=== PATIENT | male | born 1985 | race Caucasian/White ===

== ENCOUNTER 2017-03-15 16:31 | Emergency (ER) | payer MEDICAID, SELFPAY ==
[2017-03-15 19:02] VITALS: BMI 30.7
[2017-03-15 19:04] VITALS: BP 127/78; PULSE 93; RESP 18; TEMP 36.7; O2SAT 94; BMI 30.7
--- NOTE | 2017-03-15 19:09 | XR_ITS ---
XR chest 2V HISTORY: ITS.REASON: COUGH ORDERING PHYSICIAN: Starr Pearson MD PATIENT AGE: 31 years COMPARISON: None available FINDINGS: The cardiomediastinal silhouette and pulmonary vascularity are within normal limits. There is hyper inflation with coarsening of the bronchovascular markings consistent with asthma/bronchitis. No lobar consolidation or collapse. On the lateral view there is a 9 mm nodular opacity projecting over the T10 vertebral body possibly related to summation artifact and may be confirmed with follow-up.. No acute bony abnormalities. IMPRESSION: 1. Hyperinflation with coarsening of the bronchovascular markings suggesting bronchitis/asthma 2. Possible nodular density overlying the T10 vertebral body. Follow-up suggested to confirm stability and/or resolution
--- NOTE | 2017-03-15 20:12 | HMH.EDGENADL ---
ED Disposition Clinical Impression: Acute bronchitis, Serous otitis media, Furuncle Disposition: Home, Self-Care Condition on Discharge: Good Instructions: DI for Acute Bronchitis, DI for Sinusitis, Middle Ear Infection Additional Instructions: Additional instructions for UPPER RESPIRATORY INFECTION: See your physician as soon as possible for further evaluation. Return immediately if you have an uncontrollable fever greater than 104 degrees, difficulty breathing or shortness of breath, persistent vomiting, or inability to swallow. Prescriptions: Azithromycin [Zithromax 250mg tab] 250 mg PO DAILY #4 tablet Benzonatate [Tessalon Perle 100mg Cap] 100 mg PO TIDP PRN #20 cap PRN Reason: Cough Mupirocin [Bactroban 2% Ointment 22gm tube] 1 applicatio TP TID #1 tube - Critical Care Critical Care Time: No Attestation: On 03/15/17, the high probability of a clinically significant, sudden or life threatening deterioration of the following system(s) required my full and direct attention, intervention and personal management. The time I documented below is in addition to time spent performing reported procedures but includes the following listed in this critical care notation. Medical Decision Making Vital Signs: 03/15/17 19:04 Temperature 98.1 F Temperature Source Oral Pulse Rate [Right Brachial] 93 H Respiratory Rate 18 Blood Pressure [Right Arm] 127/78 Blood Pressure Mean [Right Arm] 94 Blood Pressure Source [Right Arm] Automatic Cuff Blood Pressure Position [Right Arm] Sitting 02 Sat by Pulse Oximetry 94 L Oxygen Delivery Method Room Air - Lab Data Lab Results 03/15/17 19:05: Influenza Type A Ag Negative, Influenza Type B Ag Negative Orders (Tests/Meds): ORDERS Category Date Time Status Chest XR 2 view (NOT portable) [XR chest 2V] Stat Exams 03/15/17 19:09 Taken - Jeevan Inquiry Pt receiving controlled substance: No General Adult HPI - General Chief complaint: Fever Stated complaint: Congestion,Facial Pressure, Back Pain Mode of Arrival: Ambulatory Limitations: No Limitations Description of Symptoms (Recalled from ER Triage Doc. by RN): COUGH,FEVER - History of Present Illness HPI narrative: The patient has 2 different complaints. He has an upper respiratory infection since before which is not improving. He also has a small skin lesion on his left buttock for a week. He has not seen his primary care physician. He complains of nasal and sinus congestion, colored rhinorrhea, sore throat, congested ears, cough. - Related Data Previous Rx's Medication Instructions Recorded Azithromycin [Zithromax 250mg 250 mg PO DAILY #4 tablet 03/15/17 tab] Benzonatate [Tessalon Perle 100mg 100 mg PO TIDP PRN #20 cap 03/15/17 Cap] Mupirocin [Bactroban 2% Ointment 1 applicatio TP TID #1 tube 03/15/17 22gm tube] Allergies Allergy/AdvReac Type Severity Reaction Status Date / Time No Known Allergies Allergy Unverified 02/26/17 15:00 [facility] History I have reviewed the patient's past medical history: Yes - *Social History Educational Level: Completed High School Smoking Status: Current every day smoker Tobacco Type: cigarettes # Packs/Day (cigarettes): 20 Alcohol Intake: current Alcohol Intake Frequency:: holidays/special occasions only - Psychiatric History Expresses thoughts of harming self/others: None Suicide Plan Description: No Plan ROS Obtained: Yes Appropriate systems reviewed & no add complaints except as noted - Constitutional Reports fever(s) - ENT Reports ear pain, Reports nasal congestion, Reports nasal discharge, Reports sinus pain, Reports sinus pressure, Reports sore throat - Respiratory Reports cough - Integumentary/Breasts Reports new lesions Physical Exam - General General appearance: alert, in no apparent distress - Head Head exam: atraumatic, normocephalic, normal inspection - Eye Eye exam: Present: norm
== END 2017-03-15 21:09 | disposition home or self-care (01) ==
PROVIDERS: Emergency Medicine; Emergency Provider Emergency Medicine; Family Provider Family Medicine
DX: J20.9 Acute bronchitis, unspecified (principal); H65.90 Unspecified nonsuppurative otitis media, unspecified ear; L02.32 Furuncle of buttock; F17.210 Nicotine dependence, cigarettes, uncomplicated
CPT/HCPCS: 71046; 87275; 87276; 99283

== ENCOUNTER 2019-09-21 09:02 | Emergency (ER) | payer OTHER, SELFPAY ==
[2019-09-21 09:04] VITALS: BP 141/84; PULSE 87; RESP 16; TEMP 36.7; O2SAT 95; BMI 34.9
--- NOTE | 2019-09-21 09:16 | XR_ITS ---
PROCEDURE: XR CHEST 2V CLINICAL HISTORY: chest pain COMPARISON: No exams were available for comparison FINDINGS: The cardiomediastinal silhouette and pulmonary vascularity are within normal limits. The lungs are clear without infiltrates, suspicious nodules, or pleural effusions. No acute bony findings. IMPRESSION: No acute findings. Dictated by: Shemar Contreras MD 09/21/2019 09:55 Electronically signed by Shemar Contreras MD in [place] 09/21/2019 09:55
--- NOTE | 2019-09-21 09:23 | PC.NURSE ---
Pt to rad
--- NOTE | 2019-09-21 09:27 | HMH.EDGENADL ---
ED Disposition Clinical Impression: Chest pain Qualifiers: Chest pain type: unspecified Qualified Code(s): R07.9 - Chest pain, unspecified Nausea and vomiting Qualifiers: Vomiting type: unspecified Vomiting Intractability: non-intractable Qualified Code(s): R11.2 - Nausea with vomiting, unspecified Disposition: Home, Self-Care Condition on Discharge: Good Instructions: DI for Diarrhea and Traveler's Diarrhea -- Adult, DI for Diarrhea and Traveler's Diarrhea -- Child, DI for Nausea -- Adult, DI for Nausea -- Child Additional Instructions: Zofran as needed for nausea. Stay hydrated. Follow-up with your PCP in the next 2 to 3 days. If you have any new, changing, worsening, or concerning symptoms, come back to the emergency department immediately. Prescriptions: Ondansetron [Zofran 4mg ODT] 4 mg PO Q8H PRN 2 Days #6 tab.rapdis PRN Reason: Nausea Transmission Status: Pending to [id number] Referrals: Shruthi Ferris [Primary Care Provider] - Time of Disposition: 11:17 - Critical Care Critical Care Time: No Attestation: On 09/21/19, the high probability of a clinically significant, sudden or life threatening deterioration of the following system(s) required my full and direct attention, intervention and personal management. The time I documented below is in addition to time spent performing reported procedures but includes the following listed in this critical care notation. Medical Decision Making - Medical Records Medical records reviewed: Yes: I reviewed the patient's medical records. MR Comment: 34-year-old male with no past medical history presents the emergency department with chest pain since yesterday and vomiting over the last 2 days. He denies hematemesis, chest pain is mild on arrival. He arrives to the ED hemodynamically stable, with reassuring vital signs, and looks well on exam. No concerning physical exam findings, not concern for [place]. ACS considered as well as infectious etiology. Will get labs including troponin and chest x-ray, treated with Zofran and fluids and reassess. Reassessment, he remains well. He is feeling some better. He is tolerating p.o. without any difficulties and repeat abdominal exam remains unremarkable. He has a heart score of 1. Chest xray personally reviewed and read by radiology and does not show any acute process, labs are nonactionable. Given these tolerating p.o., feeling better, talked him about discharge home with [facility] and close follow-up with his PCP. He was given strict return precautions and discharge instructions including follow-up for further evaluation and treatment and verbalized an understanding and agreement to the plan. Safe to discharge. - Jeevan Inquiry Pt receiving controlled substance: No Vital Signs: 09/21/19 09:04 09/21/19 10:48 Temperature 98.1 F Temperature Source Oral Pulse Rate [Left Radial] 87 76 Respiratory Rate 16 18 Blood Pressure [Right Arm] 141/84 H 111/72 Blood Pressure Mean [Right Arm] 103 85 Blood Pressure Source [Right Arm] Automatic Cuff Blood Pressure Position [Right Arm] Sitting Sitting 02 Sat by Pulse Oximetry 95 96 Oxygen Delivery Method Room Air Room Air - Lab Data Lab Results 09/21/19 09:25: WBC 10.0, RBC 5.44, Hgb 16.6, Hct 46.5, MCV 85.5, MCH 30.4, MCHC 35.6 H, RDW 12.5, Plt Count 365, MPV 7.0 L, Neut % (Auto) 46.2, Lymph % (Auto) 47.2, Lane % (Auto) 3.4, Eos % (Auto) 2.5, Baso % (Auto) 0.7, Neut # (Auto) 4.6, Lymph # (Auto) 4.7 H, Lane # (Auto) 0.3, Eos # (Auto) 0.3, Baso # (Auto) 0.1 09/21/19 09:25: Sodium 140, Potassium 4.1, Chloride 103, Carbon Dioxide 26, Anion Gap 15.1 H, BUN 7 L, Creatinine 0.60 L, Estimated Creat Clear 256, Estimated GFR 154, Est GFR ( Amer) 187, Glucose 91, Calcium 9.1, Total Bilirubin 0.4, AST 25, ALT 26, Alkaline Phosphatase 65, Troponin I < 0.01, Total Protein 7.4, Albumin 4.5, Globulin 2.9, Albumin/Globulin Ratio 1.6 Result diagrams: 09/21/19 09:25 09/21/19 0
[2019-09-21 09:36] LABS: Basophils # 0.1 K/mm3 (0-0.2); Basophils % 0.7 % (0.1-2.0); Eosinophils # 0.3 K/mm3 (0.0-0.4); Eosinophils % 2.5 % (0.1-12.0); Hematocrit 46.5 % (42.0-52.0); Hemoglobin 16.6 g/dL (14.1-18.0); Lymphocytes # 4.7 K/mm3 (0.7-4.5); Lymphocytes % 47.2 % (10-50); Mean Corpuscular HGB Conc 35.6 g/dL (31.8-35.4); Mean Corpuscular Hemoglobin 30.4 pg (27.0-31.2); Mean Corpuscular Volume 85.5 fl (80-94); Monocytes # 0.3 K/mm3 (0.1-1.0); Monocytes % 3.4 % (1.7-9.3); Neutrophils # 4.6 K/mm3 (1.8-7.8); Neutrophils % 46.2 % (37.0-80.0); Platelet Count 365 K/mm3 (142-424); Red Blood Count 5.44 M/mm3 (4.60-6.20); Red Cell Distribution Width 12.5 % (11.5-17.5)
--- NOTE | 2019-09-21 09:37 | ECG_ITS ---
APPROVED REPORT Exam: Resting ECG HR:76 bpm ECG Measurements Heart Rate 76 AXES MI 148 P 44 QRSd 82 QRS 64 QT 374 T 37 QTc 420 <Conclusion> Normal sinus rhythm Normal ECG Electronically signed by : Ady Logan, 09/21/2019 15:14:59
[2019-09-21 09:38] LABS: Chloride 103 mmol/L (98-107); Potassium 4.1 mmoL/L (3.5-5.1); Sodium 140 mmol/L (136-145)
[2019-09-21 09:41] LABS: Alanine Aminotransferase 26 U/L (12-78); Albumin Level 4.5 g/dl (3.5-5.0); Albumin/Globulin Ratio 1.6 (1.1-1.8); Alkaline Phosphatase 65 U/L (38-126); Anion Gap 15.1 mEq/L (5-15); Aspartate Amino Transferase 25 U/L (17-59); Bilirubin,Total 0.4 mg/dl (0.2-1.3); Blood Urea Nitrogen 7 mg/dl (9-20); Carbon Dioxide 26 mmol/L (22.0-30.0); Creatinine Clearance Estimated 256 mL/min (50-200); Estimated Glomerular Filt Rate 154 ml/min (>60); GFR (African American) 187 ML/MIN (>60); Globulin 2.9 g/dL (1.3-3.2); Total Protein,Serum 7.4 g/dl (6.3-8.2)
[2019-09-21 09:42] LABS: Calcium 9.1 mg/dl (8.4-10.2); Glucose 91 mg/dl (74-100)
[2019-09-21 09:56] LABS: Troponin I < 0.01 ng/ml (0.00-0.034)
[2019-09-21 10:48] VITALS: BP 111/72; PULSE 76; RESP 18; O2SAT 96
[2019-09-21 11:30] VITALS: BP 113/74; PULSE 78; RESP 16; TEMP 36.6; O2SAT 98
== END 2019-09-21 11:31 | disposition home or self-care (01) ==
PROVIDERS: Emergency Provider Emergency Medicine; PCP Family Medicine
DX: R07.9 Chest pain, unspecified (principal); R11.2 Nausea with vomiting, unspecified; F17.210 Nicotine dependence, cigarettes, uncomplicated
CPT/HCPCS: 71046; 80053; 84484; 85025; 93005; 96365; 96375; 96376; 99283; J2405